=== PATIENT | female | born 1975 | race Caucasian/White ===

== ENCOUNTER 2016-07-21 21:38 | Emergency (ER) | payer MEDICAID, OTHER ==
[~2016-07-21] VITALS: Ht 177.8 cm; Wt 75.0 kg
[~2016-07-21 21:38] MED LIST: CHLO25 PO; OMEP20CA5 PO; TAB-TAB PO
[2016-07-21 21:47] VITALS: BP 118/77; PULSE 81; RESP 18; TEMP 97.8; O2SAT 100
[2016-07-21] MEDS ORDERED: OMEP20TA PO (21:53)
--- NOTE | 2016-07-21 21:58 | PD ---
HPI Chief Complaint: Seizure Time Seen by Provider: 21:49 Travel History International Travel<30 days: No Contact w/Intl Traveler<30days: No Traveled to known affect area: No History of Present Illness HPI 40-year-old female complains of seizure, nausea vomiting. Patient has history of alcohol abuse. Patient states that she try to quit drinking for the past few days. Patient states that her last drink with this morning. Patient states that she started having problems with nausea vomiting, shakiness and possible seizure today. Patient has history of seizure when she tried to stop drinking in the past. Patient states that she had history SVT status post ablation procedure in the past. Patient states that she was on beta yancy however has not taken it recently. Patient denies any other illicit drug abuse. Patient denies any headache. Patient denies any chest pain or shortness of breath. Patient denies abdominal pain. Patient denies any focal weakness or numbness of the extremity. PFSH Past Medical History Anxiety: Yes Depression: Yes Heart Rhythm Problems: Yes (SVT) Cardiovascular Problems: Yes (svt with ablation) Diminished Hearing: No Immunizations Current: Yes Thyroid Disease: Yes (HYPOTHYRoid) Tetanus Vaccination: > 5 Years Influenza Vaccination: No ?: Not Menopausal: No : 1 Para: 1 Past Surgical History Cardiac Surgery: Yes (CARDIAC ABLATION FOR SVT APR 2010) Eye Surgery: Yes (STABISMUS CORRECTION) Hysterectomy: Yes (NOV ) Other Surgery: Yes (duodenum surgery for weight loss) Social History Alcohol Use: Yes (2-3 GLASSES WINE/ NIGHT mixed with sobriety periods) Tobacco Use: Yes (1/2 PPD) Substance Use: No Allergies-Medications (Allergen,Severity, Reaction): Coded Allergies: Codeine (Verified Adverse Reaction, Severe, INDIGESTION, 11/01/15) Reported Meds & Prescriptions Reported Meds & Active Scripts Active Reported Omeprazole 20 Mg Tab 20 Mg PO DAILY Review of Systems General / Constitutional: No: Fever Eyes: No: Visual changes HENT: No: Headaches Cardiovascular: No: Chest Pain or Discomfort Respiratory: No: Shortness of Breath Gastrointestinal: Positive: Nausea, Vomiting, No: Abdominal Pain Genitourinary: No: Dysuria Musculoskeletal: No: Pain Skin: No Rash Neurologic: No: Weakness Psychiatric: No: Depression Endocrine: No: Polydipsia Hematologic/Lymphatic: No: Easy Bruising Physical Exam Narrative GENERAL: Well-nourished, well-developed patient. SKIN: Warm and dry. HEAD: Normocephalic. EYES: No scleral icterus. No injection or drainage. NECK: Supple, trachea midline. No JVD or lymphadenopathy. CARDIOVASCULAR: Regular rate and rhythm without murmurs, gallops, or rubs. RESPIRATORY: Breath sounds equal bilaterally. No accessory muscle use. GASTROINTESTINAL: Abdomen soft, non-tender, nondistended. MUSCULOSKELETAL: No cyanosis, or edema. BACK: Nontender without obvious deformity. No CVA tenderness. Neurologic exam normal. Data Data Last Documented VS Vital Signs Date Time Temp Pulse Resp B/P Pulse Ox O2 Delivery O2 Flow Rate FiO2 07/21/16 23:02 96 18 113/64 99 Room Air 07/21/16 21:47 97.8 Orders Complete Blood Count With Diff (07/21/16 21:52) Comprehensive Metabolic Panel (07/21/16 21:52) Lipase (07/21/16 21:52) Urinalysis - C+S If Indicated (07/21/16 21:52) Magnesium (Mg) (07/21/16 21:52) Alcohol (Ethanol) (07/21/16 21:52) Drug Screen, Random Urine (07/21/16 21:52) Phosphorus (Po4) (07/21/16 21:52) Iv Access Insert/Monitor (07/21/16 21:52) Ecg Monitoring (07/21/16 21:52) Oximetry (07/21/16 21:52) Sodium Chlor 0.9% 1000 Ml Inj (Ns 1000 M (07/21/16 22:00) Thiamine Inj (Thiamine Inj) (07/21/16 22:00) Ondansetron Inj (Zofran Inj) (07/21/16 22:00) Lorazepam Inj (Ativan Inj) (07/21/16 22:00) Labs Laboratory Tests Test 07/21/16 07/21/16 21:53 22:20 Urine Collection Type CLEAN CATCH Urine Color STRAW Urine Turbidity CLEAR Urine pH 6.0 Urine Specific [place] 1.002 Urine Protein NEG mg/dL Urine Glucose (UA) NEG mg/dL Urine Ketones NEG mg/dL Urine Occult Blood TRACE Urine Nitrite NEG Urine Bilirubin NEG Urine Leukocyte Esterase NEG Urine RBC 0-3 /hpf Urine Squamous Epithelial 0-5 /hpf Cells Urine Amorphous Sediment SMALL Microscopic Urinalysis Comment CULT NOT INDICATED Urine Opiates Screen NEG Urine Barbiturates Screen NEG Urine Amphetamines Screen NEG Urine Benzodiazepines Screen NEG Urine Cocaine Screen NEG Urine Cannabinoids Screen NEG White Blood Count 6.4 TH/MM3 Red Blood Count 4.13 MIL/MM3 Hemoglobin 11.4 GM/DL Hematocrit 34.3 % Mean Corpuscular Volume 83.1 FL Mean Corpuscular Hemoglobin 27.6 PG Mean Corpuscular Hemoglobin 33.2 % Concent Red Cell Distribution Width 20.0 % Platelet Count 228 TH/MM3 Mean Platelet Volume 8.3 FL Neutrophils (%) (Auto) 43.9 % Lymphocytes (%) (Auto) 45.8 % Monocytes (%) (Auto) 7.6 % Eosinophils (%) (Auto) 2.1 % Basophils (%) (Auto) 0.6 % Neutrophils # (Auto) 2.8 TH/MM3 Lymphocytes # (Auto) 3.0 TH/MM3 Monocytes # (Auto) 0.5 TH/MM3 Eosinophils # (Auto) 0.1 TH/MM3 Basophils # (Auto) 0.0 TH/MM3 CBC Comment DIFF FINAL Differential Comment Sodium Level 132 MEQ/L Potassium Level 4.1 MEQ/L Chloride Level 97 MEQ/L Carbon Dioxide Level 27.8 MEQ/L Anion Gap 7 MEQ/L Blood Urea Nitrogen 2 MG/DL Creatinine 0.43 MG/DL Estimat Glomerular Filtration 162 ML/MIN Rate Random Glucose 99 MG/DL Calcium Level 8.1 MG/DL Phosphorus Level 3.4 MG/DL Magnesium Level 2.5 MG/DL Total Bilirubin 0.3 MG/DL Aspartate Amino Transf 48 U/L (AST/SGOT) Alanine Aminotransferase 46 U/L (ALT/SGPT) Alkaline Phosphatase 105 U/L Total Protein 6.9 GM/DL Albumin 3.6 GM/DL Lipase 401 U/L Ethyl Alcohol Level 318 MG/DL [facility] Medical Decision Making Medical Screen Exam Complete: Yes Emergency Medical Condition: Yes Interpretation(s) 23:29 PM. CBC within normal limit. Sodium 132. Lipase 41. Alcohol 318. Urine drug screen negative. UA is negative. Differential Diagnosis Differential diagnosis including alcohol withdrawal seizure, impending DT, electrolyte imbalance, dehydration, alcohol intoxication. Narrative Course 40-year-old female with nausea vomiting, shakiness, possible seizure today. History EtOH abuse. History of alcohol withdrawal seizure in the past. Normal saline solution 1 L IV bolus. Thiamine 100 mg IV. Zofran 4 mg IV. Ativan 1 mg IV. Diagnosis Primary Impression: Gastroenteritis Additional Impression: Alcohol intoxication Qualified Code: F10.120 - Alcohol intoxication, uncomplicated Patient Instructions: General Instructions Additional Instructions: Zofran as needed for nausea vomiting. Librium as needed for anxiety. Follow- up with [facility]. Return as needed. Scripts Ondansetron Odt (Zofran Odt)4 Mg Tab4 Mg SL Q6HR PRN (Nausea/Vomiting) #12 TAB Ref 0 Prov:Isaias Hancock MD 07/21/16 [Librium] No Conflict Check25 Mg PO Q8HR #21 Prov:Isaias Hancock MD 07/21/16 Isaias Hancock MD Jul 21, 2016 21:58
[2016-07-21] MEDS ORDERED: LORazepam 2 MG/ML VIAL IV PUSH ONE (22:00)
[2016-07-21] MEDS ORDERED: THIAMINE INJ 100 MG in SODIUM CHLORIDE 0.9% INJ 100 ML IV ONE (22:00)
[2016-07-21] MEDS ORDERED: SODIUM CHLOR 0.9% 1000 ML INJ 1,000 ML IV ONE (22:00)
[2016-07-21] MEDS ORDERED: ONDANSETRON HCL 4 MG/2 ML VIAL IV PUSH ONE (22:00)
[2016-07-21 22:26] LABS: BLOOD, URINE TRACE (NEG); GLUCOSE,URINE NEG (NEG); KETONE, URINE NEG (NEG); NITRITE,URINE NEG (NEG)
[2016-07-21 22:29] VITALS: RESP 18; O2SAT 97
[2016-07-21 22:33] LABS: CHLORIDE 97 MEQ/L (98-107); POTASSIUM 4.1 MEQ/L (3.5-5.1); SODIUM (NA) 132 MEQ/L (136-145)
[2016-07-21 22:34] LABS: BARBITURATES, URINE NEG (NEG)
[2016-07-21 22:37] LABS: AUTOMATED NEUTROPHIL # 2.8 TH/MM3 (1.8-7.7); BASOPHIL % 0.6 % (0.0-2.0); EOSINOPHIL # 0.1 TH/MM3 (0-0.4); EOSINOPHIL % 2.1 % (0.0-4.0); HEMATOCRIT 34.3 % (35.0-46.0); HEMO FLAGS DIFF FINAL; LYMPH % 45.8 % (9.0-44.0); MEAN CELL VOLUME 83.1 FL (80.0-100.0); MEAN CORPUSCULAR HEMOGLOBIN 27.6 PG (27.0-34.0); MEAN CORPUSCULAR HGB CONC 33.2 % (32.0-36.0); MONO % 7.6 % (0.0-8.0); NEUT % 43.9 % (16.0-70.0); PLATELET COUNT 228 TH/MM3 (150-450); RED BLOOD COUNT 4.13 MIL/MM3 (4.00-5.30); WHITE BLOOD COUNT 6.4 TH/MM3 (4.0-11.0)
[2016-07-21 22:38] LABS: ANION GAP 7 MEQ/L (5-15); BICARBONATE 27.8 MEQ/L (21.0-32.0); BLOOD UREA NITROGEN 2 MG/DL (7-18); MAGNESIUM 2.5 MG/DL (1.5-2.5)
[2016-07-21 22:41] LABS: ALT (GPT) 46 U/L (10-53); AST (GOT) 48 U/L (15-37); GLOMERULAR FILTRATION RATE 162 ML/MIN (>89)
[2016-07-21 22:42] LABS: ALKALINE PHOSPHATASE 105 U/L (45-117); TOTAL BILIRUBIN ADULT 0.3 MG/DL (0.2-1.0)
[2016-07-21 22:44] LABS: AMPHETAMINE, URINE NEG (NEG)
[2016-07-21 22:57] LABS: METHOD OF COLLECTION CLEAN CATCH
[2016-07-21 22:58] LABS: URINE COLOR STRAW (YELLW/STRAW)
[2016-07-21 23:02] VITALS: BP 113/64; PULSE 96; RESP 18; O2SAT 99
[2016-07-21 23:04] LABS: RBC, URINE 0-3 /hpf (0-3); SQUAMOUS EPITHELIAL CELL URINE 0-5 /hpf (0-5)
[2016-07-21 23:05] LABS: COMMENT (UR) CULT NOT INDICATED; CULTURE IF INDICATED CULT NOT INDICATED
[2016-07-21 23:27] LABS: COCAINE, URINE NEG (NEG)
[2016-07-21] MEDS ORDERED: LIBRIUM PO (23:33)
[2016-07-21] MEDS ORDERED: ZOFR4TAB3 SL (23:33)
[2016-07-22 00:19] VITALS: BP 96/57; PULSE 86; RESP 18; O2SAT 98
[2016-07-22 01:15] VITALS: BP 99/54; PULSE 97; RESP 18; O2SAT 99
[2016-07-22 02:37] VITALS: BP 101/57
== END 2016-07-22 03:06 | disposition home or self-care (01) ==
LOC: PHED 21:38
DX: K52.9 Noninfective gastroenteritis and colitis, unspecified (principal); F10.129 Alcohol abuse with intoxication, unspecified; E03.9 Hypothyroidism, unspecified; F17.210 Nicotine dependence, cigarettes, uncomplicated
CPT/HCPCS: 80053; 80307; 80320; 81001; 83690; 83735; 84100; 85025; 96361; 96365; 96375; 99285; J2060; J2405; J3411; J7030

== ENCOUNTER 2016-09-21 12:05 | Emergency (ER) | payer MEDICAID, OTHER ==
[~2016-09-21] VITALS: Ht 177.8 cm; Wt 77.2 kg
[~2016-09-21 12:05] MED LIST changes: -CHLO25 PO; +LIBRIUM PO; -OMEP20CA5 PO; +OMEP20TA PO; -TAB-TAB PO; +ZOFR4TAB3 SL
[2016-09-21] MEDS ORDERED: SODIUM CHLOR 0.9% 1000 ML INJ 1,000 ML IV ONE (12:09)
--- NOTE | 2016-09-21 12:10 | PD ---
HPI Chief Complaint: OVERDOSE Time Seen by Provider: 12:10 Travel History International Travel<30 days: No Contact w/Intl Traveler<30days: No Traveled to known affect area: No History of Present Illness HPI 40-year-old female presents to the emergency department under a Carl act for evaluation of suicide attempt by overdose. Patient took 35 celexa and 30 trazadone. She may or may have not consumed alcohol. Patient is lethargic, follows verbal commands but has mumbled speech. Per patient record, patient has history of SVT, depression, anxiety. She has previous suicide attempt utilizing car exhaust in a closed garage. PFSH Past Medical History Anxiety: Yes Depression: Yes Heart Rhythm Problems: Yes (SVT) Cardiovascular Problems: Yes (svt with ablation) Diminished Hearing: No Immunizations Current: Yes Thyroid Disease: Yes (HYPOTHYRoid) Menopausal: No : 1 Para: 1 Past Surgical History Cardiac Surgery: Yes (CARDIAC ABLATION FOR SVT APR 2010) Eye Surgery: Yes (STABISMUS CORRECTION) Hysterectomy: Yes (NOV ) Other Surgery: Yes (duodenum surgery for weight loss) Social History Alcohol Use: Yes (2-3 GLASSES WINE/ NIGHT mixed with sobriety periods) Tobacco Use: Yes (07/07 PPD) Substance Use: No Allergies-Medications (Allergen,Severity, Reaction): Coded Allergies: Codeine (Verified Adverse Reaction, Severe, INDIGESTION, 07/22/16) Reported Meds & Prescriptions Reported Meds & Active Scripts Active Zofran Odt (Ondansetron Odt) 4 Mg Tab 4 Mg SL Q6HR PRN [Librium] 25 Mg PO Q8HR Reported Omeprazole 20 Mg Tab 20 Mg PO DAILY Review of Systems Except as stated in HPI: all other systems reviewed are Neg Physical Exam Narrative GENERAL: Well-nourished female patient, lethargic, arousable, in no acute distress. SKIN: Warm and dry. HEAD: Atraumatic. Normocephalic. EYES: Pupils equal and round. No scleral icterus. No injection or drainage. ENT: No nasal bleeding or discharge. Mucous membranes pink and moist. NECK: Trachea midline. No JVD. CARDIOVASCULAR: Regular rate and rhythm. No murmur appreciated. RESPIRATORY: No accessory muscle use. Clear to auscultation. Breath sounds equal bilaterally. GASTROINTESTINAL: Abdomen soft, non-tender, nondistended. Hepatic and splenic margins not palpable. MUSCULOSKELETAL: No obvious deformities. No clubbing. No cyanosis. No edema. NEUROLOGICAL: Lethargic, arousable No obvious cranial nerve deficits. Motor grossly within normal limits. Normal speech. Data Data Last Documented VS Vital Signs Date Time Temp Pulse Resp B/P Pulse Ox O2 Delivery O2 Flow Rate FiO2 09/21/16 12:27 14 98 Room Air 09/21/16 12:27 85 Orders Electrocardiogram (09/21/16 12:09) Complete Blood Count With Diff (09/21/16 12:09) Comprehensive Metabolic Panel (09/21/16 12:09) Prothrombin Time / Inr (Pt) (09/21/16 12:09) Act Partial Throm Time (Ptt) (09/21/16 12:09) Urinalysis - C+S If Indicated (09/21/16 12:09) Iv Access Insert/Monitor (09/21/16 12:09) Ecg Monitoring (09/21/16 12:09) Oximetry (09/21/16 12:09) Psych Screen (09/21/16 12:09) Sodium Chloride 0.9% Flush (Ns Flush) (09/21/16 12:15) Sodium Chlor 0.9% 1000 Ml Inj (Ns 1000 M (09/21/16 12:09) Call Poison Control (09/21/16 12:09) Drug Screen, Random Urine (09/21/16 12:09) Alcohol (Ethanol) (09/21/16 12:09) Salicylates (Aspirin) (09/21/16 12:09) Tylenol (Acetaminophen) (09/21/16 12:09) Ed Urine Pregnancytest Poc (09/21/16 12:30) Ondansetron Inj (Zofran Inj) (09/21/16 12:45) Restraints Non-Violent ROSANGELA.Q3H (09/21/16 12:57) Electrocardiogram (09/21/16 ) Labs Laboratory Tests Test 09/21/16 09/21/16 12:20 13:05 White Blood Count 9.6 TH/MM3 Red Blood Count 3.97 MIL/MM3 Hemoglobin 11.2 GM/DL Hematocrit 34.3 % Mean Corpuscular Volume 86.3 FL Mean Corpuscular Hemoglobin 28.2 PG Mean Corpuscular Hemoglobin 32.7 % Concent Red Cell Distribution Width 21.6 % Platelet Count 308 TH/MM3 Mean Platelet Volume 7.6 FL Neutrophils (%) (Auto) 67.5 % Lymphocytes (%) (Auto) 24.5 % Monocytes (%) (Auto) 7.2 % Eosinophils (%) (Auto) 0.2 % Basophils (%) (Auto) 0.6 % Neutrophils # (Auto) 6.5 TH/MM3 Lymphocytes # (Auto) 2.4 TH/MM3 Monocytes # (Auto) 0.7 TH/MM3 Eosinophils # (Auto) 0.0 TH/MM3 Basophils # (Auto) 0.1 TH/MM3 CBC Comment DIFF FINAL Differential Comment Prothrombin Time 12.0 SEC Prothromb Time International 1.1 RATIO Ratio Activated Partial 27.4 SEC Thromboplast Time Sodium Level 132 MEQ/L Potassium Level 3.9 MEQ/L Chloride Level 93 MEQ/L Carbon Dioxide Level 24.5 MEQ/L Anion Gap 15 MEQ/L Blood Urea Nitrogen 4 MG/DL Creatinine 0.59 MG/DL Estimat Glomerular Filtration 112 ML/MIN Rate Random Glucose 103 MG/DL Calcium Level 8.2 MG/DL Total Bilirubin 0.3 MG/DL Aspartate Amino Transf 39 U/L (AST/SGOT) Alanine Aminotransferase 38 U/L (ALT/SGPT) Alkaline Phosphatase 94 U/L Total Protein 6.9 GM/DL Albumin 3.4 GM/DL Salicylates Level LESS THAN 1.7 MG/DL Acetaminophen Level LESS THAN 2.0 MCG/ML Ethyl Alcohol Level 268 MG/DL Urine Color LIGHT-YELLOW Urine Turbidity CLEAR Urine pH 5.5 Urine Specific [place] 1.005 Urine Protein NEG mg/dL Urine Glucose (UA) NEG mg/dL Urine Ketones NEG mg/dL Urine Occult Blood NEG Urine Nitrite NEG Urine Bilirubin NEG Urine Urobilinogen LESS THAN 2.0 MG/DL Urine Leukocyte Esterase NEG Urine RBC LESS THAN 1 /hpf Urine WBC 1 /hpf Urine Squamous Epithelial <1 /hpf Cells Urine Bacteria OCC /hpf Microscopic Urinalysis Comment CULT NOT INDICATED Urine Opiates Screen NEG Urine Barbiturates Screen NEG Urine Amphetamines Screen NEG Urine Benzodiazepines Screen NEG Urine Cocaine Screen NEG Urine Cannabinoids Screen NEG MDM Medical Decision Making Medical Screen Exam Complete: Yes Emergency Medical Condition: Yes Medical Record Reviewed: Yes Differential Diagnosis Overdose versus intoxication versus mood disorder versus personality disorder versus electrolyte abnormality Narrative Course 40-year-old female presents to the emergency department for evaluation following an alleged overdose by Celexa and trazodone. Patient is lethargic, arousable. Vital signs are stable. Poison control is contracted. Lab work is initiated and EKGs complete with normal sinus rhythm, no irregular rhythm or ectopy noted. Repeat EKG is recommended in 2 hours. CBC is without acute concern. CMP is with mild hyponatremia 132. AST slightly elevated at 39 otherwise unremarkable. Urinalysis is with occasional bacteria; culture is not indicated. Salicylates was less than 1.7. Acetaminophen is 2. Toxicology is otherwise negative. EtOH is 268. I discussed the patient my attending physician. Repeat EKG is within normal limits. Patient will be observed until 4 PM at which time she will be medically cleared to undergo psychiatric screening for further evaluation and disposition. Mental health screening discussed with the patient. Psychiatric screen ordered. Diagnosis Primary Impression: Overdose of antidepressant Qualified Code: T43.202A - Overdose of antidepressant, intentional self-harm, initial encounter Additional Impressions: Overdose of antipsychotic Qualified Code: T43.502A - Overdose of antipsychotic, intentional self-harm, initial encounter Suicidal overdose Qualified Code: T50.902A - Suicidal overdose, initial encounter Condition: Stable Lynette Gilliland Sep 21, 2016 12:10
[2016-09-21] MEDS ORDERED: SODIUM CHLORIDE 0.9% FLUSH 5 ML FLUSH IVF PRN (12:15)
[2016-09-21 12:27] VITALS: RESP 14; O2SAT 98
[2016-09-21 12:30] LABS: AUTOMATED NEUTROPHIL # 6.5 TH/MM3 (1.8-7.7); BASOPHIL # 0.1 TH/MM3 (0-0.2); BASOPHIL % 0.6 % (0.0-2.0); EOSINOPHIL % 0.2 % (0.0-4.0); HEMATOCRIT 34.3 % (35.0-46.0); HEMO FLAGS DIFF FINAL; LYMPH % 24.5 % (9.0-44.0); LYMPHOCYTE # 2.4 TH/MM3 (1.0-4.8); MEAN CELL VOLUME 86.3 FL (80.0-100.0); MEAN CORPUSCULAR HEMOGLOBIN 28.2 PG (27.0-34.0); MEAN CORPUSCULAR HGB CONC 32.7 % (32.0-36.0); MONO % 7.2 % (0.0-8.0); NEUT % 67.5 % (16.0-70.0); PLATELET COUNT 308 TH/MM3 (150-450); RED BLOOD COUNT 3.97 MIL/MM3 (4.00-5.30); RED CELL DISTRIBUTION WIDTH 21.6 % (11.6-17.2); WHITE BLOOD COUNT 9.6 TH/MM3 (4.0-11.0)
[2016-09-21 12:40] LABS: APTT (PATIENT) 27.4 SEC (24.3-30.1); INTERNATIONAL NORMALIZED RATIO 1.1 RATIO
[2016-09-21] MEDS ORDERED: ONDANSETRON HCL 4 MG/2 ML VIAL IV PUSH ONE (12:45)
[2016-09-21 12:50] LABS: ANION GAP 15 MEQ/L (5-15); AST (GOT) 39 U/L (15-37); BICARBONATE 24.5 MEQ/L (21.0-32.0); BLOOD UREA NITROGEN 4 MG/DL (7-18); CHLORIDE 93 MEQ/L (98-107); GLOMERULAR FILTRATION RATE 112 ML/MIN (>89); POTASSIUM 3.9 MEQ/L (3.5-5.1); SODIUM (NA) 132 MEQ/L (136-145)
[2016-09-21 12:53] LABS: ACETAMINOPHEN LESS THAN 2.0 MCG/ML (10.0-30.0); ALKALINE PHOSPHATASE 94 U/L (45-117); ALT (GPT) 38 U/L (10-53); TOTAL BILIRUBIN ADULT 0.3 MG/DL (0.2-1.0)
[2016-09-21 13:25] LABS: BACTERIA, URINE OCC /hpf; BLOOD, URINE NEG (NEG); COMMENT (UR) CULT NOT INDICATED; CULTURE IF INDICATED CULT NOT INDICATED; GLUCOSE,URINE NEG (NEG); KETONE, URINE NEG (NEG); NITRITE,URINE NEG (NEG); PH, URINE 5.5 (5.0-8.5); SQUAMOUS EPITHELIAL CELL URINE <1 /hpf (0-5); URINE COLOR LIGHT-YELLOW (YELLW/STRAW)
[2016-09-21 13:36] LABS: AMPHETAMINE, URINE NEG (NEG); BARBITURATES, URINE NEG (NEG); COCAINE, URINE NEG (NEG)
[2016-09-21 17:54] VITALS: BP 111/64; PULSE 84; RESP 18; O2SAT 95
[2016-09-21] MEDS ORDERED: TRAZ100T4 PO (18:26)
[2016-09-21] MEDS ORDERED: CITA20TA4 PO (18:26)
[2016-09-21] MEDS ORDERED: LORazepam 2 MG/ML VIAL IV PUSH PRN ×4 (18:30)
[2016-09-21] MEDS ORDERED: FLUMAZENIL 0.5 MG/5 ML VIAL IV PUSH PRN (18:30)
[2016-09-21] MEDS ORDERED: LORazepam 1 MG TAB PO PRN (18:30)
[2016-09-21] MEDS ORDERED: LORazepam 2 MG TAB PO PRN (18:30)
[2016-09-21] MEDS ORDERED: IBUPROFEN 600 MG TAB PO ONE (21:15)
[2016-09-21 22:47] VITALS: BP 141/73; PULSE 86; RESP 18; O2SAT 99
[2016-09-22 02:52] VITALS: BP 131/76; PULSE 82; RESP 18; TEMP 97; O2SAT 97
[2016-09-22 06:29] VITALS: BP 125/57; PULSE 79; RESP 19; O2SAT 100
[2016-09-22 12:44] VITALS: BP 125/75; PULSE 81; RESP 18; O2SAT 97
[2016-09-22] MEDS ORDERED: IBUPROFEN 600 MG TAB PO ONE (12:45)
--- NOTE | 2016-09-22 13:39 | PD ---
History of Present Illness Chief Complaint: Alcohol/Drug Intoxication Time Seen by Provider: 13:20 Travel History International Travel<30 Days: No Contact w/Intl Traveler<30days: No Known affected area: No Legal Status Legal Status: Carl Act Carl Act Signed By: Kemi Boyer History of Present Illness: This is a 40-year-old female with a history of depression and anxiety as well as previous suicide attempts, presenting under a Carl act for reported overdose of antidepressant medication and trazodone. Patient recants the story of overdose and states she became intoxicated last night. She did not actually take the Celexa. At this time she is no longer intoxicated and denies any suicidal ideation, plan or intention. This physician discussed her symptoms of depression and anxiety, for which she is treated. 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 She has a young son whom she cares about very much and he is currently in school today. She wants to be home in time to see him when he gets home. She is verbally rand for safety. She is also rand to continue to seek help. She does not meet a correct criteria or inpatient psychiatric hospitalization criteria at this time. She was instructed to stop drinking alcohol. Without becoming intoxicated, she states she has not generally speaking depressed. PFSH Past Medical History Medical History: Denies Significant Hx Anxiety: Yes Depression: Yes Heart Rhythm Problems: Yes (SVT, with Ablation) Cardiovascular Problems: Yes (svt with ablation) Diminished Hearing: No Immunizations Current: Yes Thyroid Disease: Yes (HYPOTHYRoid) ?: Unknown Menopausal: No : 1 Para: 1 Past Surgical History Cardiac Surgery: Yes (CARDIAC ABLATION FOR SVT APR 2010) Eye Surgery: Yes (STABISMUS CORRECTION) Hysterectomy: Yes (NOV ) Other Surgery: Yes (duodenum surgery for weight loss) Psychiatric History Psychiatric History Hx Psychiatric Treatment: HX OF JESSICA, DEPRESSION AND ALCOHOL INTOXICATION History of Inpatient Treatment: No Guns or firearms in home: No Social History Hx Alcohol Use: Yes (2-3 GLASSES WINE/ NIGHT mixed with sobriety periods) Hx Tobacco Use: Yes (07/07 PPD) Hx Substance Use: Yes (Suicide attempt with Celexa/Trazadone in 2017) Substance Use Type: Alcohol Other Substances Used: ETOH ABUSE Hx of Substance Use Treatment: Yes Allergies-Medications (Allergen,Severity, Reaction): Coded Allergies: Codeine (Verified Adverse Reaction, Severe, INDIGESTION, 07/22/16) Reported Meds & Prescriptions Reported Meds & Active Scripts Active Zofran Odt (Ondansetron Odt) 4 Mg Tab 4 Mg SL Q6HR PRN [Librium] 25 Mg PO Q8HR Reported Citalopram (Citalopram Hydrobromide) 20 Mg Tab 30 Mg PO DAILY Trazodone (Trazodone HCl) 100 Mg Tab 100 Mg PO HS Omeprazole 20 Mg Tab 20 Mg PO DAILY Review of Systems ROS Limitations: Clinical Condition Except as stated in HPI: all other systems reviewed are Neg Exam Exam Limitations: Clinical Condition Alert: Yes [place]: Person, Place, Date, Situation Mood: Anxious, Calm Affect: Euthymic Speech: Clear, Logical Eye Contact: Normal Memory Intact: Immediate, Recent, Remote Insight/Judgement Adequate except around alcohol. MDM Medical Decision Making Medical Record Reviewed: Yes Assessment/Plan 40-year-old female with a history of alcohol abuse, who became intoxicated last night and threatening suicide. She does have a history of suicide attempt in the past. This physician feels her current problem is in large part due to alcohol abuse and strongly recommended she stop drinking. At this time she does not meet criteria for Carl act and it was lifted. She also does not meet criteria for inpatient psychiatric hospitalization and therefore she was referred back to her outpatient clinicians. Orders Electrocardiogram (09/21/16 ) Alcohol Withdrawal Asmt-Ciwa ONCE (09/21/16 18:20) Flumazenil Inj (Romazicon Inj) (09/21/16 18:30) Lorazepam (Ativan) (09/21/16 18:30) Lorazepam Inj (Ativan Inj) (09/21/16 18:30) Lorazepam (Ativan) (09/21/16 18:30) Lorazepam Inj (Ativan Inj) (09/21/16 18:30) Lorazepam Inj (Ativan Inj) (09/21/16 18:30) Lorazepam Inj (Ativan Inj) (09/21/16 18:30) Ibuprofen (Motrin) (09/21/16 21:15) Diet Regular Basic (09/22/16 Breakfast) Diet Regular Basic (09/22/16 Lunch) Ibuprofen (Motrin) (09/22/16 12:45) Results Vital Signs Date Time Temp Pulse Resp B/P Pulse Ox O2 Delivery O2 Flow Rate FiO2 09/22/16 12:44 81 18 125/75 97 Room Air 09/22/16 06:29 79 19 125/57 100 09/22/16 02:52 97.0 82 18 131/76 97 Room Air 09/21/16 22:47 86 18 141/73 99 Room Air 09/21/16 17:54 84 18 111/64 95 Room Air Diagnosis Primary Impression: Alcohol abuse Condition: Stable Jarred Sandoval MD Sep 22, 2016 13:39
[2016-09-22 13:48] VITALS: BP 125/75; PULSE 81; RESP 18; O2SAT 97
--- NOTE | 2016-09-22 15:02 | EKG ---
Date Performed: 09/21/2016 Time Performed: 14:08:51 PTAGE: 40 years EKG: Sinus rhythm NORMAL ECG PREVIOUS TRACING : 09/21/2016 12.15 Compared to prior tracing no significant change DOCTOR: Doni Silva Interpretating Date/Time 09/22/2016 15:00:03
--- NOTE | 2016-09-22 15:06 | EKG ---
Date Performed: 09/21/2016 Time Performed: 12:15:08 PTAGE: 40 years EKG: Sinus rhythm NORMAL ECG PREVIOUS TRACING : 05/21/2016 11.38 Compared to prior tracing no significant change DOCTOR: Doni Silva Interpretating Date/Time 09/22/2016 15:04:56
== END 2016-09-22 16:55 | disposition home or self-care (01) ==
LOC: NEPE 12:05 → NEPJ 09-22 16:55
DX: T43.222A Poisoning by selective serotonin reuptake inhibitors, intentional self-harm, initial encounter (principal); T43.212A Poisoning by selective serotonin and norepinephrine reuptake inhibitors, intentional self-harm, initial encounter; E03.9 Hypothyroidism, unspecified; F32.9 Major depressive disorder, single episode, unspecified; F10.129 Alcohol abuse with intoxication, unspecified; Y90.8 Blood alcohol level of 240 mg/100 ml or more; Y92.9 Unspecified place or not applicable
CPT/HCPCS: 80053; 80307; 81001; 84703; 85025; 85610; 85730; 93005; 99284; J7030

== ENCOUNTER 2016-12-21 11:57 | Emergency (ER) | payer MEDICAID, OTHER ==
[~2016-12-21] VITALS: Ht 177.8 cm; Wt 80.0 kg
[~2016-12-21 11:57] MED LIST changes: +CITA20TA4 PO; +TRAZ100T4 PO
[2016-12-21 11:58] VITALS: BP 140/78; PULSE 96; RESP 20; TEMP 97.7; O2SAT 98
--- NOTE | 2016-12-21 12:06 | PD ---
Physical Exam Date Seen by Provider: Dec 21, 2016 Time Seen by Provider: 12:04 Data Data Last Documented VS Vital Signs Date Time Temp Pulse Resp B/P Pulse Ox O2 Delivery O2 Flow Rate FiO2 12/21/16 11:58 97.7 96 20 140/78 98 Room Air MDM Supervised Visit with POLLO: No Narrative Course 41 YO F with complaint of right foot pain. Onset after fall "a couple of hours" before arrival. Unable to bear weight. Vitals reviewed. Seen in triage, awaiting bed placement. Tiffanie Currie Dec 21, 2016 12:06
--- NOTE | 2016-12-21 12:21 | PD ---
HPI Chief Complaint: Injury Time Seen by Provider: 12:21 Travel History International Travel<30 days: No Contact w/Intl Traveler<30days: No Traveled to known affect area: No History of Present Illness HPI 41-year-old female presents the emergency department via EMS status post fall with injury to the right foot and ankle. States she was attempting to get into her sister's car when she slipped and fell injuring her right foot and ankle. Patient denies hitting her head or loss of consciousness. Pain is localized to the right foot and ankle. Pain is a 10 over 10. Patient is allergic to codeine. PFSH Past Medical History Anxiety: Yes Depression: Yes Heart Rhythm Problems: Yes (SVT, with Ablation) Cardiovascular Problems: Yes (svt with ablation) Diminished Hearing: No Immunizations Current: Yes Thyroid Disease: Yes (HYPOTHYRoid) ?: Not Menopausal: No : 1 Para: 1 Past Surgical History Cardiac Surgery: Yes (CARDIAC ABLATION FOR SVT APR 2010) Eye Surgery: Yes (STABISMUS CORRECTION) Hysterectomy: Yes (NOV ) Other Surgery: Yes (duodenum surgery for weight loss) Social History Alcohol Use: Yes (2-3 GLASSES WINE/ NIGHT mixed with sobriety periods) Tobacco Use: Yes (07/07 PPD) Substance Use: Yes (Suicide attempt with Celexa/Trazadone in 2016) Allergies-Medications (Allergen,Severity, Reaction): Coded Allergies: Codeine (Verified Adverse Reaction, Severe, INDIGESTION, 07/22/16) Reported Meds & Prescriptions Reported Meds & Active Scripts Active Omeprazole 40 Mg Cap 40 Mg PO DAILY Ibuprofen 600 Mg Tab 600 Mg PO Q6H PRN Reported Omeprazole 20 Mg Tab 20 Mg PO DAILY Review of Systems ROS Limitations: Intoxication, Uncooperative Except as stated in HPI: all other systems reviewed are Neg General / Constitutional: No: Fever Eyes: No: Visual changes HENT: No: Headaches Cardiovascular: No: Chest Pain or Discomfort Respiratory: No: Shortness of Breath Gastrointestinal: No: Abdominal Pain Genitourinary: No: Dysuria Musculoskeletal: Positive: Arthralgias, Limited ROM, Pain Skin: No Rash Neurologic: No: Weakness Psychiatric: No: Depression Endocrine: No: Polydipsia Hematologic/Lymphatic: No: Easy Bruising Physical Exam Narrative GENERAL: Patient appears in mild to moderate distress. SKIN: Warm and dry. Patient has some superficial abrasions to the right foot. Normal color. Normal turgor otherwise. HEAD: Atraumatic. Normocephalic. EYES: Pupils equal and round. No scleral icterus. No injection or drainage. ENT: No nasal bleeding or discharge. Mucous membranes pink and moist. Pharynx is clear. NECK: Trachea midline. Supple and nontender. CARDIOVASCULAR: Regular rate and rhythm. RESPIRATORY: No accessory muscle use. Clear to auscultation. Breath sounds equal bilaterally. MUSCULOSKELETAL: Extremities without clubbing, cyanosis, or edema. No obvious deformities. Right foot is noted to have a high arch. Patient is tender with palpation to both the medial and lateral ankle joint lines, as well as with palpation of the right foot. Tenderness to the right foot is localized to the dorsal medial aspect of the foot. Further evaluation is difficult due to the patient's discomfort. NEUROLOGICAL: Awake and alert. No obvious cranial nerve deficits. Motor grossly within normal limits. Five out of 5 muscle strength in the arms and legs. Normal speech. PSYCHIATRIC: Appropriate mood and affect; insight and judgment normal. Data Data Last Documented VS Vital Signs Date Time Temp Pulse Resp B/P Pulse Ox O2 Delivery O2 Flow Rate FiO2 12/21/16 11:58 97.7 96 20 140/78 98 Room Air Orders Ankle, Complete ([id number]) (12/21/16 12:07) Ice/Cold Pack (12/21/16 12:07) Foot, Complete ([id number]) (12/21/16 12:22) Ketorolac Inj (Toradol Inj) (12/21/16 13:00) Crutches (12/21/16 12:54) MDM Medical Decision Making Medical Screen Exam Complete: Yes Emergency Medical Condition: Yes Differential Diagnosis Slip and fall. Right ankle sprain. Right ankle fracture. Right foot sprain. Right foot fracture. Narrative Course Patient is medically stable at time of exam. X-rays of the right foot and ankle or obtained. X-ray showed no fracture dislocation per radiologist. Patient is given Toradol 60 mg IM. Patient is discharged home on crutches as needed for ambulation. Patient is continue ibuprofen 600 mg 4 times a day when necessary pain #40. Patient is given omeprazole 40 mg daily #30 as she has a history of gastroenteritis. Patient is referred to [facility] for EtOH abuse. Diagnosis Primary Impression: Contusion of right foot, initial encounter Additional Impressions: Hx of gastroenteritis Alcohol intoxication Qualified Code: F10.920 - Alcohol intoxication, uncomplicated Referrals: [facility] Patient Instructions: Contusion in Adults (ED), General Instructions Additional Instructions: X-ray showed no fracture dislocation per radiologist. Patient is given Toradol 60 mg IM. Patient is discharged home on crutches as needed for ambulation. Patient is continue ibuprofen 600 mg 4 times a day when necessary pain #40. Patient is given omeprazole 40 mg daily #30 as she has a history of gastroenteritis. Patient is referred to [facility] clinic for EtOH abuse. Patient should follow with her primary care physician or return to the emergency department if symptoms worsen. Med/Other Pt SpecificInfo: Prescription(s) given Scripts Omeprazole 40 Mg Cap40 Mg PO DAILY #30 CAP Prov:Rosaline Ha MD 12/21/16 Ibuprofen 600 Mg Dap142 Mg PO Q6H PRN (Pain/Inflammation) #40 TAB Prov:Rosaline Ha MD 12/21/16 Disposition: 01 DISCHARGE HOME Condition: Stable Andrew Brooke Dec 21, 2016 12:21
--- NOTE | 2016-12-21 12:46 | RADRPT ---
EXAM DATE/TIME: 12/21/2016 12:11 [facility] COMPARISON: No previous studies available for comparison. INDICATIONS : Right ankle pain post fall today. MEDICAL HISTORY : None. SURGICAL HISTORY : None. ENCOUNTER: Initial ACUITY: 1 day PAIN SCORE: 10/10 LOCATION: Right ankle. FINDINGS: Three view exam was performed of the right ankle. The bony structures are in normal alignment. No e vidence of fracture, dislocation, or soft tissue swelling. The ankle mortise is intact. No radiopaq ue foreign bodies are seen. Bony mineralization is normal. CONCLUSION: 1. No acute fracture or dislocation. Socrates Johnson MD on December 21, 2016 at 12:43 Board Certified Radiologist. This report was verified electronically.
--- NOTE | 2016-12-21 12:48 | RADRPT ---
EXAM DATE/TIME: 12/21/2016 12:17 [facility] COMPARISON: No previous studies available for comparison. INDICATIONS : Right foot pain post fall today. MEDICAL HISTORY : None. SURGICAL HISTORY : None. ENCOUNTER: Initial ACUITY: 1 day PAIN SCORE: 10/10 LOCATION: Right foot. FINDINGS: Three view examination of the right foot demonstrates no soft tissue swelling, dislocation, or fractu re. The tarsal bones appear intact. The interphalangeal and metatarsophalangeal joints are intact. The calcaneus is intact. Mild calcaneal spurring. Bony mineralization is normal. Soft tissue promi nence overlying the heel. CONCLUSION: 1. Soft tissue prominence overlying the heel. 2. No acute fracture or dislocation. Socraets Johnson MD on December 21, 2016 at 12:44 Board Certified Radiologist. This report was verified electronically.
[2016-12-21] MEDS ORDERED: OMEP40CA2 PO (12:57)
[2016-12-21] MEDS ORDERED: IBUP-232 PO (12:57)
[2016-12-21] MEDS ORDERED: KETOROLAC TROMETHAMINE 60 MG/2 ML (IM) VIAL IM ONE (13:00)
== END 2016-12-21 13:30 | disposition home or self-care (01) ==
LOC: NEPD 11:57
DX: S90.31XA Contusion of right foot, initial encounter (principal); F10.129 Alcohol abuse with intoxication, unspecified; F41.9 Anxiety disorder, unspecified; F32.9 Major depressive disorder, single episode, unspecified; E03.9 Hypothyroidism, unspecified; F17.200 Nicotine dependence, unspecified, uncomplicated; W01.0XXA Fall on same level from slipping, tripping and stumbling without subsequent striking against object, initial encounter; Z79.899 Other long term (current) drug therapy
CPT/HCPCS: 73610; 73630; 96372; 99284; E0113; J1885

== ENCOUNTER 2016-12-23 12:18 | Emergency (ER) | payer MEDICAID ==
[~2016-12-23] VITALS: Ht 177.8 cm; Wt 70.0 kg
[~2016-12-23 12:18] MED LIST changes: -CITA20TA4 PO; +IBUP-232 PO; -LIBRIUM PO; +OMEP40CA2 PO; -TRAZ100T4 PO; -ZOFR4TAB3 SL
[2016-12-23 12:24] VITALS: BP 138/88; PULSE 144; RESP 18; TEMP 98.4; O2SAT 99
--- NOTE | 2016-12-23 13:06 | PD ---
HPI Chief Complaint: Cardiac Complaint Time Seen by Provider: 13:06 Travel History International Travel<30 days: No Contact w/Intl Traveler<30days: No Traveled to known affect area: No History of Present Illness HPI 41-year-old female with history of SVT S/P [place] [address] Rose, chronic alcoholism presents to the ED for evaluation of "weeks long" history of palpitations and centralized, intermittent chest pain. Chest pain is described as "someone sitting on my chest." Also complains of right lateral rib pain which she thinks is related to a recent fall in which she sustained an ankle sprain. Patient states pain is accompanied by nausea, shortness of breath. She endorses chronic, nonproductive cough. She also complains of "mucous filled " stools. Last bowel movement "a few days ago,' loose. She denies hematochezia or melena. Patient endorses drinking 2 bottles of wine daily. Last drink "last night." Denies illicit drug use. PFSH Past Medical History Anxiety: Yes Depression: Yes Heart Rhythm Problems: Yes (SVT, with Ablation) Cardiovascular Problems: Yes Diminished Hearing: No Immunizations Current: Yes Thyroid Disease: Yes (HYPOTHYRoid) Menopausal: No : 1 Para: 1 Past Surgical History Cardiac Surgery: Yes (CARDIAC ABLATION FOR SVT APR 2010) Eye Surgery: Yes (STABISMUS CORRECTION) Hysterectomy: Yes (NOV ) Other Surgery: Yes (duodenum surgery for weight loss) Social History Alcohol Use: Yes (2-3 GLASSES WINE/ NIGHT mixed with sobriety periods) Tobacco Use: Yes (/2 PPD) Substance Use: Yes (Suicide attempt with Celexa/Trazadone in 2017) Allergies-Medications (Allergen,Severity, Reaction): Coded Allergies: Codeine (Verified Adverse Reaction, Severe, INDIGESTION, 07/22/16) Reported Meds & Prescriptions Reported Meds & Active Scripts Active Omeprazole 40 Mg Cap 40 Mg PO DAILY Ibuprofen 600 Mg Tab 600 Mg PO Q6H PRN Reported Omeprazole 20 Mg Tab 20 Mg PO DAILY Review of Systems Except as stated in HPI: all other systems reviewed are Neg Physical Exam Narrative GENERAL: Well-nourished, well-developed white female in no acute distress. PSYCHIATRIC: Anxious, pain out of the portion to exam. SKIN: Focused skin assessment warm/dry. Small old ecchymosis on the left arm, the right back and the right ankle. HEAD: Normocephalic. EYES: No scleral icterus. No injection or drainage. NECK: Supple, trachea midline. No JVD or lymphadenopathy. CARDIOVASCULAR: Regular rate and rhythm without murmurs, gallops, or rubs. 2+ DP and radial pulses. CHEST: Tender to palpation over the sternum and the right lower rib. No deformity or crepitus. No retractions or use of accessory muscles. RESPIRATORY: Breath sounds clear and equal bilaterally. No accessory muscle use. GASTROINTESTINAL: Abdomen soft, non-tender, nondistended. Active bowel sounds. RECTAL EXAM: No masses or tenderness, stool is brown. Guaiac negative MUSCULOSKELETAL: No cyanosis, or edema. Moves all extremities spontaneously. BACK: Nontender without obvious deformity. + right sided CVA tenderness. Data Data Last Documented VS Vital Signs Date Time Temp Pulse Resp B/P Pulse Ox O2 Delivery O2 Flow Rate FiO2 12/23/16 14:04 98 18 125/82 99 Room Air 12/23/16 12:24 98.4 Orders Electrocardiogram (12/23/16 12:33) Complete Blood Count With Diff (12/23/16 12:33) Ckmb (Isoenzyme) Profile (12/23/16 12:33) Troponin I (12/23/16 12:33) Magnesium (Mg) (12/23/16 13:03) Prothrombin Time / Inr (Pt) (12/23/16 13:03) Act Partial Throm Time (Ptt) (12/23/16 13:03) Chest, Single Ap (12/23/16 13:03) Ecg Monitoring (12/23/16 13:03) Bilateral Bp Monitoring (12/23/16 13:03) Iv Access Insert/Monitor (12/23/16 13:03) Oximetry (12/23/16 13:03) Sodium Chloride 0.9% Flush (Ns Flush) (12/23/16 13:15) Comprehensive Metabolic Panel (12/23/16 13:03) Alcohol (Ethanol) (12/23/16 13:39) Sodium Chlor 0.9% 1000 Ml Inj (Ns 1000 M (12/23/16 13:45) CKMB (12/23/16 13:14) CKMB% (12/23/16 13:14) Labs Laboratory Tests Test 12/23/16 12/23/16 13:04 13:14 Sodium Level 133 MEQ/L Potassium Level 4.3 MEQ/L Chloride Level 98 MEQ/L Carbon Dioxide Level 18.7 MEQ/L Anion Gap 16 MEQ/L Blood Urea Nitrogen 4 MG/DL Creatinine 0.61 MG/DL Estimat Glomerular Filtration 108 ML/MIN Rate Random Glucose 114 MG/DL Calcium Level 7.8 MG/DL Magnesium Level 2.2 MG/DL Total Bilirubin 0.3 MG/DL Aspartate Amino Transf 51 U/L (AST/SGOT) Alanine Aminotransferase 36 U/L (ALT/SGPT) Alkaline Phosphatase 140 U/L Total Protein 7.6 GM/DL Albumin 3.8 GM/DL Ethyl Alcohol Level 242 MG/DL White Blood Count 9.5 TH/MM3 Red Blood Count 4.12 MIL/MM3 Hemoglobin 11.6 GM/DL Hematocrit 34.9 % Mean Corpuscular Volume 84.5 FL Mean Corpuscular Hemoglobin 28.0 PG Mean Corpuscular Hemoglobin 33.2 % Concent Red Cell Distribution Width 18.2 % Platelet Count 294 TH/MM3 Mean Platelet Volume 8.0 FL Neutrophils (%) (Auto) 72.4 % Lymphocytes (%) (Auto) 22.2 % Monocytes (%) (Auto) 4.7 % Eosinophils (%) (Auto) 0.1 % Basophils (%) (Auto) 0.6 % Neutrophils # (Auto) 6.9 TH/MM3 Lymphocytes # (Auto) 2.1 TH/MM3 Monocytes # (Auto) 0.4 TH/MM3 Eosinophils # (Auto) 0.0 TH/MM3 Basophils # (Auto) 0.1 TH/MM3 CBC Comment DIFF FINAL Differential Comment Total Creatine Kinase 221 U/L Creatine Kinase MB 1.7 NG/ML Creatine Kinase MB % 0.8 % Troponin I 0.02 NG/ML [facility] Medical Decision Making Medical Screen Exam Complete: Yes Emergency Medical Condition: Yes Differential Diagnosis Dysrhythmia versus chest pain versus costochondritis versus musculoskeletal pain versus GI bleed versus anemia versus alcohol withdrawal versus other Narrative Course 41-year-old female with history of SVT S/P [place] [address] Rose, chronic alcoholism presents to the ED for evaluation of "weeks long" history of palpitations and centralized, intermittent chest pain. Chest pain is described as "someone sitting on my chest." Also complains of right lateral rib pain which she thinks is related to a recent fall in which she sustained an ankle sprain. Patient states pain is accompanied by nausea, shortness of breath. She endorses chronic, nonproductive cough. She also complains of "mucous filled " stools. Last bowel movement "a few days ago,' loose. She denies hematochezia or melena. Patient endorses drinking 2 bottles of wine daily. Last drink "last night." Denies illicit drug use. Vitals reviewed. Physical exam reveals some tenderness to palpation over the sternum and the lower lateral edge of the right anterior rib cage. The right ankle is edematous and ecchymotic. There are several small old ecchymosis of the left arm and right back. Patient requested IV fluid administration multiple times. She was administered 1 L normal saline IV. EKG: Rate 29, first-degree AV block. Normal intervals. Normal axis. No acute ST changes. Reviewed by Dr. Hancock. CXR: No acute cardiopulmonary process per radiology read. Cardiac enzymes: Negative 1. CBC: Unremarkable CMP: hypocalcemia of 7.8. Alcohol: 242 During the course of the evaluation the patient left AGAINST MEDICAL ADVICE. She was advised of the dangers of leaving including possibility of acute coronary syndrome or even . She still opted to leave AGAINST MEDICAL ADVICE. [facility] Point of Care Internal Pos. & Neg. Controls: Passed Fecal Specimen Occult Blood: Negative Tiffanie Currie Dec 23, 2016 13:06
[2016-12-23] MEDS ORDERED: SODIUM CHLORIDE 0.9% FLUSH 10 ML FLUSH IVF PRN (13:15)
[2016-12-23 13:22] VITALS: BP_SYST 125; BP_SYST 130; BP_DIAS 82; BP_DIAS 87; PULSE 115; PULSE 116; RESP 18; O2SAT 98
[2016-12-23 13:23] VITALS: RESP 18; O2SAT 98
[2016-12-23 13:39] LABS: AUTOMATED NEUTROPHIL # 6.9 TH/MM3 (1.8-7.7); BASOPHIL # 0.1 TH/MM3 (0-0.2); BASOPHIL % 0.6 % (0.0-2.0); EOSINOPHIL % 0.1 % (0.0-4.0); HEMATOCRIT 34.9 % (35.0-46.0); HEMO FLAGS DIFF FINAL; LYMPH % 22.2 % (9.0-44.0); LYMPHOCYTE # 2.1 TH/MM3 (1.0-4.8); MEAN CELL VOLUME 84.5 FL (80.0-100.0); MEAN CORPUSCULAR HGB CONC 33.2 % (32.0-36.0); MONO % 4.7 % (0.0-8.0); NEUT % 72.4 % (16.0-70.0); PLATELET COUNT 294 TH/MM3 (150-450); RED BLOOD COUNT 4.12 MIL/MM3 (4.00-5.30); RED CELL DISTRIBUTION WIDTH 18.2 % (11.6-17.2); WHITE BLOOD COUNT 9.5 TH/MM3 (4.0-11.0)
[2016-12-23] MEDS ORDERED: SODIUM CHLOR 0.9% 1000 ML INJ 1,000 ML IV ONE (13:45)
[2016-12-23 13:59] LABS: CKMB 1.7 NG/ML (0.5-3.6)
[2016-12-23 14:04] VITALS: BP 125/82; PULSE 98; RESP 18; O2SAT 99
--- NOTE | 2016-12-23 14:06 | RADRPT ---
EXAM DATE/TIME: 12/23/2016 13:27 [facility] COMPARISON: CHEST SINGLE AP, May 21, 2016, 12:06. INDICATIONS : Palpitations. Patient states she has chest pain, abdomen RUQ, and increased heart rate. MEDICAL HISTORY : None. SURGICAL HISTORY : None. ENCOUNTER: Initial ACUITY: 1 day PAIN SCORE: 5/10 LOCATION: Bilateral chest FINDINGS: A single view of the chest demonstrates the lungs to be symmetrically aerated without evidence of mas s, infiltrate or effusion. The cardiomediastinal contours are unremarkable. Osseous structures are intact. CONCLUSION: 1. No acute cardiomegaly disease. Socrates Johnson MD on December 23, 2016 at 14:03 Board Certified Radiologist. This report was verified electronically.
[2016-12-23 14:26] LABS: ANION GAP 16 MEQ/L (5-15); AST (GOT) 51 U/L (15-37); BICARBONATE 18.7 MEQ/L (21.0-32.0); BLOOD UREA NITROGEN 4 MG/DL (7-18); CHLORIDE 98 MEQ/L (98-107); GLOMERULAR FILTRATION RATE 108 ML/MIN (>89); MAGNESIUM 2.2 MG/DL (1.5-2.5); POTASSIUM 4.3 MEQ/L (3.5-5.1); SODIUM (NA) 133 MEQ/L (136-145)
[2016-12-23 14:27] LABS: ALT (GPT) 36 U/L (10-53)
[2016-12-23 14:29] LABS: ALKALINE PHOSPHATASE 140 U/L (45-117); TOTAL BILIRUBIN ADULT 0.3 MG/DL (0.2-1.0)
--- NOTE | 2016-12-23 17:00 | EKG ---
Date Performed: 12/23/2016 Time Performed: 12:38:43 PTAGE: 41 years EKG: SINUS TACHYCARDIA ABNORMAL ECG PREVIOUS TRACING : 09/21/2016 14.08 Compared to previous tracing, heart rate has increased. DOCTOR: Tim Johnson Interpretating Date/Time 12/23/2016 16:57:28
== END 2016-12-23 15:00 | disposition left against medical advice (07) ==
LOC: NEPD 12:18
DX: R94.31 Abnormal electrocardiogram [ECG] [EKG] (principal); E83.51 Hypocalcemia; F41.8 Other specified anxiety disorders; F17.210 Nicotine dependence, cigarettes, uncomplicated; Z53.21 Procedure and treatment not carried out due to patient leaving prior to being seen by health care provider
CPT/HCPCS: 71010; 80053; 80307; 82550; 82552; 83735; 84484; 85025; 93005; 99285; J7030